=== PATIENT | female | born 1955 | race Caucasian/White ===

== ENCOUNTER → 2020-08-20 | Outpatient (CLI) | payer MEDICARE, OTHER ==
[~2020-08-20] MED LIST: ACIPHEX20 MG PO; ALBUTEROL2.5 MG/3 M INH; ASPIRIN EC325 MG PO; ATORVASTATIN CA10 MG PO; CLOBETASOL 0.0560 G1 TOP; CYMBALTA60 MG PO; FLONASE 0.05% N16 GM; FUROSEMIDE20 MG PO; GABAPENTIN300 MG PO; GLUCOPHAGE500 MG PO; HUMIBID LA TAB600 MG PO; ISOSORBIDE MONO30 MG PO; KLOR-CON M1010 MEQ PO; LEVOCETIRIZINE D5 MG PO; LEVOTHYROXINE112 MCG PO; MELOXICAM15 MG PO; METOPROLOL TART25 MG PO; MONTELUKAST SOD10 MG PO; MYCELEX TROCHE10 MG MT; OMEPRAZOLE40 MG PO; OXYCODON-ACETA1 EAC1 PO; PATADAY2.5 ML EYEBOTH; PERIOGARD473 ML MM; SILVADENE CREAM20 GM TOP; TEMAZEPAM30 MG PO; TRAZODONE HCL50 MG PO; VITAMIN D PO; VITAMIN D31250 MCG PO; ZINC50 M2 PO
[2020-08-20 13:06] LABS: HEMOGLOBIN 12.2 gm/dl (12.3-15.3); RED BLOOD COUNT 4.1 M/UL (4.00-5.10); WHITE BLOOD COUNT 8.2 K/UL (4.5-11.0)
[2020-08-20 13:37] LABS: BUN/CREATININE RATIO 23 (0-10)
[2020-08-21 10:16] LABS: CREATININE, URINE 147.8 mg/dL (Not Estab.)
== END ==
LOC: LAB 11:51
PROVIDERS: Nurse Practitioner Family
DX: E11.9 Type 2 diabetes mellitus without complications (principal); R79.89 Other specified abnormal findings of blood chemistry; M25.50 Pain in unspecified joint; K76.0 Fatty (change of) liver, not elsewhere classified; K90.0 Celiac disease; J30.9 Allergic rhinitis, unspecified; N30.10 Interstitial cystitis (chronic) without hematuria; E78.9 Disorder of lipoprotein metabolism, unspecified; E55.9 Vitamin D deficiency, unspecified; R53.81 Other malaise; R41.3 Other amnesia; R20.0 Anesthesia of skin; R20.2 Paresthesia of skin; M54.2 Cervicalgia; M54.5 Low back pain; M54.12 Radiculopathy, cervical region
CPT/HCPCS: 36415; 80053; 80061; 82043; 82570; 82607; 83036; 84439; 84443; 85025

== ENCOUNTER → 2020-10-15 | Outpatient (CLI) | payer MEDICARE, OTHER ==
[2020-10-15 09:56] LABS: HEMOGLOBIN 11.8 gm/dl (12.3-15.3); RED BLOOD COUNT 3.88 M/UL (4.00-5.10); WHITE BLOOD COUNT 8.4 K/UL (4.5-11.0)
[2020-10-15 10:13] LABS: BUN/CREATININE RATIO 32 (0-10)
== END ==
LOC: OPSV2 09:00 → EDSTATUS 09:00 → OPSV2 09:10
PROVIDERS: Orthopaedic Surgery
DX: Z01.818 Encounter for other preprocedural examination (principal); M16.11 Unilateral primary osteoarthritis, right hip; E11.9 Type 2 diabetes mellitus without complications; Z88.2 Allergy status to sulfonamides
CPT/HCPCS: 36415; 80048; 83036; 85025; 87081; 93005

== ENCOUNTER → 2020-10-23 | Outpatient (CLI) | payer MEDICARE, OTHER | LOC: NM 08:51 | DX: R14.0 Abdominal distension (gaseous) (principal); R10.9 Unspecified abdominal pain; K90.0 Celiac disease | CPT/HCPCS: 78264; A9541 ==

== ENCOUNTER → 2020-10-28 | Outpatient (CLI) | payer MEDICARE, OTHER ==
[2020-10-28 12:32] LABS: BUN/CREATININE RATIO 31 (0-10)
== END ==
LOC: LAB 11:31
PROVIDERS: Orthopaedic Surgery
DX: Z01.818 Encounter for other preprocedural examination (principal); M17.11 Unilateral primary osteoarthritis, right knee; R05 Cough
CPT/HCPCS: 36415; 71046; 80048; 86850; 86900; 86901

== ENCOUNTER 2020-10-29 06:06 | Day surgery (SDC) | payer MEDICARE, OTHER ==
[~2020-10-29] VITALS: Ht 167.6 cm; Wt 96.2 kg
[~2020-10-29 06:06] MED LIST changes: -ALBUTEROL2.5 MG/3 M INH; -ASPIRIN EC325 MG PO; -HUMIBID LA TAB600 MG PO; -OXYCODON-ACETA1 EAC1 PO
[2020-10-29] MEDS ORDERED: OXYCODON-ACETA1 EAC1 PO (08:28)
[2020-10-29] MEDS ORDERED: ASPIRIN EC325 MG PO (08:28)
[2020-10-29] MEDS ORDERED: HUMIBID LA TAB600 MG PO (13:30)
[2020-10-29] MEDS ORDERED: ALBUTEROL2.5 MG/3 M INH (13:30)
[2020-10-30 04:33] LABS: HEMOGLOBIN 9.8 gm/dl (12.3-15.3); RED BLOOD COUNT 3.22 M/UL (4.00-5.10); WHITE BLOOD COUNT 11.4 K/UL (4.5-11.0)
[2020-10-30 04:53] LABS: BUN/CREATININE RATIO 35 (0-10)
--- NOTE | 2020-10-30 09:56 | NUR ---
DISCONTINUED PATIENT MCCORMICK CATH AND HEMOVAC. BOTH WNL.
--- NOTE | 2020-10-30 10:00 | NUR ---
INSTRUCTED PATIENT ON MED CHANGES. WEIGHT BARING TOLERATED PER MD ORDER, NEW MEDS AT [facility]. SCRIPT FOR OUTPATIENT THERAPY INSIDE. VERBALIZED UNDERSTANDING. YEYO LOCKE R.N.
== END 2020-10-30 12:05 | disposition home or self-care (01) ==
LOC: OR 06:06 → EDSTATUS 08:15 → M/S 12:27 → OR 10-30 12:05
PROVIDERS: Orthopaedic Surgery
PROC: 3E0T3BZ Introduction of Anesthetic Agent into Peripheral Nerves and Plexi, Percutaneous Approach (ICD-10-PCS; 2020-10-29)
PROC: 3E0T3BZ Introduction of Anesthetic Agent into Peripheral Nerves and Plexi, Percutaneous Approach (ICD-10-PCS; 2020-10-29)
PROC: 0SRC0J9 Replacement of Right Knee Joint with Synthetic Substitute, Cemented, Open Approach (ICD-10-PCS; principal; 2020-10-29 07:30)
DX: M17.11 Unilateral primary osteoarthritis, right knee (principal); G89.18 Other acute postprocedural pain; E11.42 Type 2 diabetes mellitus with diabetic polyneuropathy; G47.33 Obstructive sleep apnea (adult) (pediatric); I25.10 Atherosclerotic heart disease of native coronary artery without angina pectoris; E78.5 Hyperlipidemia, unspecified; K21.9 Gastro-esophageal reflux disease without esophagitis; E03.9 Hypothyroidism, unspecified; I38 Endocarditis, valve unspecified; J45.909 Unspecified asthma, uncomplicated; K76.0 Fatty (change of) liver, not elsewhere classified; M79.7 Fibromyalgia; Z20.822 Contact with and (suspected) exposure to COVID-19; Z88.2 Allergy status to sulfonamides; Z79.84 Long term (current) use of oral hypoglycemic drugs; Z79.1 Long term (current) use of non-steroidal anti-inflammatories (NSAID); Z79.899 Other long term (current) drug therapy; Z95.5 Presence of coronary angioplasty implant and graft
CPT/HCPCS: 36415; 73560; 80048; 82962; 85027; 97116-GP-CQ; 97162; 97165; 97530-GP-CQ; C1776; J0171; J0592; J0690; J1100; J2001; J2270; J2400; J2405; J2704; J2795; J3370; J7120

== ENCOUNTER → 2020-12-09 | Outpatient (CLI) | payer MEDICARE, OTHER ==
[~2020-12-09] MED LIST changes: +ALBUTEROL2.5 MG/3 M INH; +ASPIRIN EC325 MG PO; +HUMIBID LA TAB600 MG PO; +OXYCODON-ACETA1 EAC1 PO
[2020-12-09 16:28] LABS: HEMOGLOBIN 11.5 gm/dl (12.3-15.3); RED BLOOD COUNT 3.92 M/UL (4.00-5.10); WHITE BLOOD COUNT 9.8 K/UL (4.5-11.0)
[2020-12-09 16:54] LABS: BUN/CREATININE RATIO 16 (0-10)
[2020-12-11 09:15] LABS: CREATININE, URINE 133.7 mg/dL (Not Estab.)
== END ==
LOC: LAB 15:25
PROVIDERS: Nurse Practitioner Family
DX: E11.9 Type 2 diabetes mellitus without complications (principal); R79.89 Other specified abnormal findings of blood chemistry; M25.50 Pain in unspecified joint; M54.5 Low back pain; K76.0 Fatty (change of) liver, not elsewhere classified; E55.9 Vitamin D deficiency, unspecified; E78.5 Hyperlipidemia, unspecified; G56.00 Carpal tunnel syndrome, unspecified upper limb; K59.09 Other constipation; R53.81 Other malaise; M54.12 Radiculopathy, cervical region; M45.2 Ankylosing spondylitis of cervical region; N30.10 Interstitial cystitis (chronic) without hematuria; R41.3 Other amnesia; R20.2 Paresthesia of skin
CPT/HCPCS: 80053; 80061; 82043; 82570; 82607; 83036; 84439; 84443; 85025

== ENCOUNTER → 2021-03-10 | Outpatient (CLI) | payer MEDICARE, OTHER ==
[2021-03-10 10:40] LABS: HEMOGLOBIN 12.5 gm/dl (12.3-15.3); RED BLOOD COUNT 4.25 M/UL (4.00-5.10)
[2021-03-10 11:15] LABS: BUN/CREATININE RATIO 29 (0-10)
[2021-03-11 11:13] LABS: CREATININE, URINE 101.9 mg/dL (Not Estab.)
== END ==
LOC: LAB 09:53
PROVIDERS: Nurse Practitioner Family
DX: E11.9 Type 2 diabetes mellitus without complications (principal); R80.9 Proteinuria, unspecified; G56.00 Carpal tunnel syndrome, unspecified upper limb; K59.09 Other constipation; E55.9 Vitamin D deficiency, unspecified; R20.0 Anesthesia of skin
CPT/HCPCS: 36415; 80053; 80061; 82043; 82570; 82607; 83036; 84439; 84443; 85025

== ENCOUNTER → 2021-03-19 | Outpatient (CLI) | payer MEDICARE, OTHER | LOC: EMI 10:52 | DX: R20.0 Anesthesia of skin (principal); R20.2 Paresthesia of skin; R26.81 Unsteadiness on feet; Z91.81 History of falling; G31.9 Degenerative disease of nervous system, unspecified | CPT/HCPCS: 70551 ==

== ENCOUNTER → 2021-06-23 | Outpatient (CLI) | payer MEDICARE, OTHER ==
[2021-06-23 13:24] LABS: HEMOGLOBIN 12.9 gm/dl (12.3-15.3); RED BLOOD COUNT 4.32 M/UL (4.00-5.10); WHITE BLOOD COUNT 10.2 K/UL (4.5-11.0)
[2021-06-24 08:15] LABS: A/G RATIO 1.1 (1.2-2.2); ALKALINE PHOSPHATASE, S 170 IU/L (44-121); ALT (SGPT) 25 IU/L (0-32); AST (SGOT) 36 IU/L (0-40); BILIRUBIN, TOTAL 0.5 mg/dL (0.0-1.2); BUN 18 mg/dL (8-27); BUN/CREATININE RATIO 21 (12-28); CALCIUM, SERUM 10.1 mg/dL (8.7-10.3); CARBON DIOXIDE, TOTAL 20 mmol/L (20-29); CHLORIDE, SERUM 101 mmol/L (96-106); CHOLESTEROL, TOTAL 148 mg/dL (100-199); CREATININE, SERUM 0.85 mg/dL (0.57-1.00); CREATININE, URINE 139.7 mg/dL (Not Estab.); EGFR IF AFRICN AM 82 (>59); EGFR IF NONAFRICN AM 71 (>59); ESTIM. AVG GLU (EAG) 126 mg/dL (.); GLOBULIN, TOTAL 3.4 g/dL (1.5-4.5); GLUCOSE, SERUM 124 mg/dL (65-99); HDL CHOLESTEROL 35 mg/dL (>39); LDL CHOLESTEROL CALC 92 mg/dL (0-99); LDL/HDL RATIO 2.6 ratio (0.0-3.2); POTASSIUM, SERUM 4.9 mmol/L (3.5-5.2); PROTEIN, TOTAL, SERUM 7.3 g/dL (6.0-8.5); SODIUM, SERUM 138 mmol/L (134-144); T. CHOL/HDL RATIO 4.2 ratio (0.0-4.4); TRIGLYCERIDES 115 mg/dL (0-149)
[2021-06-25 17:09] LABS: ENDOMYSIAL ANTIBODY IGA Positive (Negative); IMMUNOGLOBULIN A, QN, SERUM 545 mg/dL (87-352); T-TRANSGLUTAMINASE (TTG) IGA >100 U/mL (0-3); T-TRANSGLUTAMINASE (TTG) IGG 4 U/mL (0-5)
== END ==
LOC: LAB 12:54
PROVIDERS: Nurse Practitioner Family
DX: E78.5 Hyperlipidemia, unspecified (principal); J30.9 Allergic rhinitis, unspecified; G56.00 Carpal tunnel syndrome, unspecified upper limb; K90.0 Celiac disease; Z00.00 Encounter for general adult medical examination without abnormal findings; F41.9 Anxiety disorder, unspecified; R20.0 Anesthesia of skin; R20.2 Paresthesia of skin; E55.9 Vitamin D deficiency, unspecified; E11.65 Type 2 diabetes mellitus with hyperglycemia; M25.50 Pain in unspecified joint
CPT/HCPCS: 36415; 80053; 80061; 82043; 82570; 82607; 82784; 83036; 84439; 84443; 85025

== ENCOUNTER → 2021-07-04 | Outpatient (CLI) | payer MEDICARE, OTHER | LOC: RAD 13:32 | DX: J18.9 Pneumonia, unspecified organism (principal); R05.9 Cough, unspecified; Z92.89 Personal history of other medical treatment | CPT/HCPCS: 71046 ==

== ENCOUNTER → 2021-09-09 | Outpatient (CLI) | payer MEDICARE, OTHER | LOC: EXRD 12:52 | DX: R06.02 Shortness of breath (principal); R91.8 Other nonspecific abnormal finding of lung field | CPT/HCPCS: 71046 ==

== ENCOUNTER → 2021-09-15 | Outpatient (CLI) | payer MEDICARE, OTHER | LOC: CT 13:00 | DX: R06.02 Shortness of breath (principal); R79.89 Other specified abnormal findings of blood chemistry | CPT/HCPCS: Q9967 ==

== ENCOUNTER → 2021-09-24 | Outpatient (CLI) | payer MEDICARE, OTHER | LOC: MAMO 09-19 10:30 | DX: Z12.31 Encounter for screening mammogram for malignant neoplasm of breast (principal) | CPT/HCPCS: 77063; 77067 ==

== ENCOUNTER → 2021-09-25 | Outpatient (CLI) | payer MEDICARE, OTHER | LOC: HEART 5 08:45 | DX: R06.02 Shortness of breath (principal) | CPT/HCPCS: 94010 ==

== ENCOUNTER → 2021-11-20 | Outpatient (CLI) | payer MEDICARE, OTHER | LOC: ECHO 11:15 → NM 13:00 | DX: R06.02 Shortness of breath (principal); R42 Dizziness and giddiness; R55 Syncope and collapse; R05.3 Chronic cough | CPT/HCPCS: ECHO; 78452; 93017; 93270; 93306; A9502; J2785 ==